=== PATIENT | male | born 1990 | race Caucasian/White ===

== ENCOUNTER 2016-09-17 11:28 | Emergency (ER) | payer MEDICAID ==
[2016-09-17 11:28] VITALS: BMI 20.1
[2016-09-17 11:37] VITALS: BP 124/76; PULSE 113; RESP 20; TEMP 99.6; O2SAT 98
--- NOTE | 2016-09-17 11:50 | ED PDOC ---
Arrival/HPI - General Chief Complaint: Allergic Reaction Time Seen by Provider: 09/17/16 11:31 Historian: Patient - History of Present Illness Time/Duration: Other (2 days) Symptom Onset: Gradual Symptom Course: Worsening Severity Level: Mild Activities at Onset: Rest Associated Symptoms (Text): 09/17/16 11:48 Patient reports that he was in a methamphetamine panic attack 2 days ago and very vigorously brushed his teeth. He developed swelling of his right lower lip and gum area. No pain. No fever. No direct blow. The swelling became worse today and he became concerned. Past Medical History - Infectious Disease Hx of Infectious Diseases: None - Psychiatric Hx Psychophysiologic Disorder: Yes Hx Anxiety: Yes Hx Substance Use: Yes (marijuana, methamphetamine) - Anesthesia Hx Anesthesia: No Hx Anesthesia Reactions: No Hx Malignant Hyperthermia: No Family/Social History - Physician Review Nursing Documentation Reviewed: Yes Family/Social History: Unknown Family HX Smoking Status: Former Smoker Hx Alcohol Use: Yes Frequency of alcohol use: Few days per week Hx Substance Use: Yes (marijuana, methamphetamine) Allergies/Home Meds Allergies/Adverse Reactions: Allergies No Known Allergies Allergy (Verified 01/03/15 11:00) Review of Systems - Physician Review All systems were reviewed & negative as marked: Yes - Review of Systems Constitutional: absent: Fatigue, Fevers Physical Exam Vital Signs Temp Pulse Resp BP Pulse Ox 09/17/16 11:36 99.6 F 113 H 20 124/76 98 Temperature: Afebrile Blood Pressure: Normal Pulse: Regular Respiratory Rate: Normal Appearance: Positive for: Well-Appearing, Non-Toxic, Comfortable Pain Distress: None Mental Status: Positive for: Alert and Oriented X 3 - Systems Exam Ears: Present: NORMAL TM, Normal Canal. No: Erythema Mouth: Present: Moist Mucous Membranes, Normal Teeth. No: Normal Lips (Right lower lip swelling and erythema with gingivitis and nontender) Pharnyx: No: ERYTHEMA, EXUDATE, TONSILS ENLARGED Neck: No: Lymphadenopathy Disposition/Present on Arrival - Present on Arrival Any Indicators Present on Arrival: No History of DVT/PE: No History of Uncontrolled Diabetes: No Urinary Catheter: No History of Decub. Ulcer: No History Surgical Site Infection Following: None - Disposition Have Diagnosis and Disposition been Completed?: Yes Diagnosis: Gingivitis, Cellulitis Disposition: HOME/ ROUTINE Disposition Time: 11:51 Patient Plan: Discharge Condition: GOOD Discharge Instructions (ExitCare): Cellulitis (ED), Gingivitis (ED), Trench Mouth (ED), Methamphetamine Abuse (ED), Polysubstance Abuse (ED) Additional Instructions: Follow-up with PMD and dentist. Follow up in ER as needed. Prescriptions: Amoxicillin/Clavulanate [Augmentin 875 MG-125 MG] 1 tab PO Q12 #20 tab Ref[place]: [facility] [place] [facility] [place] Follow up with primary Forms: [employer] ([place])
== END 2016-09-17 12:06 | disposition home or self-care (01) ==
LOC: ED 11:28
DX: K05.10 Chronic gingivitis, plaque induced (principal); L03.90 Cellulitis, unspecified; Z87.891 Personal history of nicotine dependence